=== PATIENT | female | born 1955 | race Caucasian/White ===

== ENCOUNTER 2019-11-01 13:26 | Inpatient (IN) | payer MEDICARE, OTHER ==
[~2019-11-01] VITALS: Ht 157.5 cm; Wt 94.8 kg
[2019-11-01 14:11] LABS: BASOPHILS # (AUTO) 0.1 K/uL (0.0-8.0); BASOPHILS % (AUTO) 1.1 % (0.0-2.0); EOSINOPHILS # (AUTO) 0.2 K/uL (0.0-0.7); EOSINOPHILS % (AUTO) 2.4 % (0.0-7.0); HEMATOCRIT 40.3 % (31.2-41.9); HEMOGLOBIN 13.6 g/dL (10.9-14.3); LYMPHOCYTES # (AUTO) 1.8 K/uL (20.0-40.0); LYMPHOCYTES % (AUTO) 24.3 % (20.5-51.5); MEAN CORPUSCULAR HEMOGLOBIN 32.1 uug (24.7-32.8); MEAN CORPUSCULAR HGB CONC 34 g/dL (32.3-35.6); MEAN CORPUSCULAR VOLUME 95.5 fL (75.5-95.3); MONOCYTES # (AUTO) 0.7 K/uL (2.0-10.0); NEUTROPHILS # (AUTO) 4.8 K/uL (1.8-8.9); NEUTROPHILS % (AUTO) 63.2 % (38.5-71.5); PLATELET COUNT (AUTO) 326 K/uL (179-408); RED BLOOD CELL COUNT(AUTO) 4.22 MIL/uL (3.63-4.92); WHITE BLOOD COUNT (AUTO) 7.5 K/uL (3.8-11.8)
[2019-11-01 14:18] LABS: CARBON DIOXIDE 27 mmol/L (21-32); CHLORIDE 102 mmol/L (98-107); CREATININE 0.8 mg/dL (0.6-1.3); GLUCOSE 100 mg/dL (74-106); POTASSIUM 4.3 mmol/L (3.5-5.1); UREA NITROGEN, BLOOD 13 mg/dL (7-18)
[2019-11-01 14:26] LABS: ALANINE AMINOTRANSFERASE 38 U/L (14-59); ALKALINE PHOSPHATASE 79 U/L (50-136); ASPARTATE AMINOTRANSFERASE 36 U/L (15-37); BILIRUBIN,DIRECT 0.1 mg/dL (0.0-0.2); BILIRUBIN,TOTAL 0.3 mg/dL (0.2-1.0)
[2019-11-01 14:27] LABS: ETHANOL < 3 MG/DL (0-0)
[2019-11-01 14:40] LABS: *BILIRUBIN,URIN NEGATIVE (NEGATIVE); *BLOOD, URINE NEGATIVE (NEGATIVE); *CLARITY,URINE CLEAR (CLEAR); *COLOR,URINE YELLOW (YELLOW); *KETONES,URINE NEGATIVE (NEGATIVE); *UROBILINOGEN,URINE 0.2 E.U./dl (NORMAL); LEUKOCYTE ESTERASE ,URINE NEGATIVE (NEGATIVE); NITRITE, URINE NEGATIVE (NEGATIVE); UGLUCOSE NEGATIVE (NEGATIVE)
[2019-11-01 14:48] LABS: ACETAMINOPHEN < 2.0 ug/mL (10-30)
--- NOTE | 2019-11-01 14:49 | NUR ---
pt tx to [facility] via [facility] ERT/HOSPITAL MEDICINE DIRECTOR. No acute distress noted.
[2019-11-01 14:55] LABS: *AMPHETAMINE, URINE POSITIVE (NEGATIVE); *BARBITURATE, URINE NEGATIVE (NEGATIVE); *CANNABINOID, URINE NEGATIVE (NEGATIVE); *COCCAINE, URINE NEGATIVE (NEGATIVE); *OPIATE, URINE NEGATIVE (NEGATIVE); *PHENCYCLIDINE SCREEN,URINE NEGATIVE (NEGATIVE)
[2019-11-01 15:30] VITALS: BP 157/89
[2019-11-01] MEDS ORDERED: MAGNESIUM HYDROXIDE 30 ML LIQUID UDC PO PRN (15:30)
[2019-11-01] MEDS ORDERED: TEMAZEPAM 7.5 MG CAPSULE PO PRN (15:30)
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
[2019-11-01 19:57] VITALS: BP 128/60
[2019-11-01] MEDS: SIMVASTATIN 20 MG TABLET PO SCH (20:46)
--- NOTE | 2019-11-02 00:39 | NUR ---
RECEIVED PATIENT SLEEPING INTERMITTENTLY THROUGH THE NIGHT.SHE WOKE UP TO REQUEST FOR SOME SNACKS AND WENT BACK TO BED.DENIES AH/VH. HOWEVER REFUSED TO ANSWER IF SHE HAS SUICIDAL IDEATION.COMPLIANT WITH MEDICATIONS BUT APPEARS IRRITABLE.VISUAL CHECKS MADE ON HER FOR SAFETY.WILL CONTINUE TO MONITOR.
[2019-11-02] MEDS: ACETAMINOPHEN 325 MG TABLET PO PRN ×2 (02:28→08:59)
--- NOTE | 2019-11-02 06:48 | NUR ---
SLEPT FOR APPROX 06;15 HRS.
[2019-11-02 07:30] VITALS: BP 172/95
[2019-11-02 07:55] LABS: BILIRUBIN,TOTAL 0.4 mg/dL (0.2-1.0); CREATININE 0.9 mg/dL (0.6-1.3); POTASSIUM 4.4 mmol/L (3.5-5.1); TOTAL PROTEIN, SERUM 7.9 g/dL (6.4-8.2)
[2019-11-02] MEDS: LORAZEPAM 1 MG TABLET PO PRN ×3 (07:59→16:44)
[2019-11-02] MEDS: LISINOPRIL 20 MG TABLET PO SCH (08:02)
[2019-11-02] MEDS ORDERED: GEMFIBROZIL 600 MG TABLET PO SCH (09:00)
[2019-11-02] MEDS ORDERED: ALBUTEROL SULFATE 2.5 MG/ 0.5 ML NEBU NEB PRN (09:30)
[2019-11-02] MEDS ORDERED: ALBUTEROL SULFATE 2.5 MG/3 ML NEBU NEB PRN (09:45)
--- NOTE | 2019-11-02 11:02 | NUR ---
Social Work Note/Initial Discharge Note: Patient resided at [facility] [address] [place] [address]; ([phone]). Per admin coordinator Anai ([phone]) stated that patient was discharged a month ago and is not welcomed back. Patient is currently homeless. SW will work with the patient and the MD regarding appropriate discharge planning. brewery cellar worker will form a safe and proper discharge plan.
--- NOTE | 2019-11-02 11:03 | NUR ---
Social Work Note/Coordination of Care: ditch worker contacted patients SNF "[facility]" and spoke to admin coordinator Anai ([phone]) who stated that patient was discharged a month ago "AMA". Per Anai, she stated that patient was disrespected towards the staff and wanted to leave. Per Anai, she stated that patients family is not involved in her care. This clinical writer asked if patient is welcomed back for re-admissions, she stated no.
--- NOTE | 2019-11-02 11:05 | NUR ---
Social Work Note/Family Contact: painting worker contacted patients daughter Doris ([phone]) and did not have a voicemail set up. This telegraphic typewriter installer was unable to reach and will attempt again.
--- NOTE | 2019-11-02 12:22 | NUR ---
Social Work Note/Individual Therapy: tea tree farm worker met with patient for brief counseling and assessed for level of suicidality. tea tree farm worker assessed for suicidal thoughts, patient denied suicidal thoughts. Patient expressed that she is not SI and that she has never been SI. tea tree farm worker provided comfort and actively listened. tea tree farm worker will continue to follow up.
[2019-11-02] MEDS ORDERED: NICOTINE 14 MG/24HR PATCH TD SCH (14:00)
[2019-11-02] MEDS: NICOTINE 7 MG/24HR PATCH TD SCH (14:15)
[2019-11-02] MEDS ORDERED: NICOTINE 7 MG/24HR PATCH TD ONE (14:15)
[2019-11-02 16:00] VITALS: BP 151/74
[2019-11-02 20:00] VITALS: BP 151/93
[2019-11-02] MEDS: CARBAMAZEPINE 200 MG TABLET PO SCH (20:23)
[2019-11-02] MEDS: ARIPIPRAZOLE 5 MG TABLET PO SCH (20:23)
[2019-11-02] MEDS: SIMVASTATIN 20 MG TABLET PO SCH (20:23)
[2019-11-02] MEDS: TRAZODONE 100 MG TABLET PO SCH (20:23)
[2019-11-03] MEDS: TEMAZEPAM 15 MG CAPSULE PO PRN (00:54)
[2019-11-03] MEDS: ACETAMINOPHEN 325 MG TABLET PO PRN (06:26)
[2019-11-03 07:30] VITALS: BP 135/81
[2019-11-03] MEDS: CARBAMAZEPINE 200 MG TABLET PO SCH ×3 (08:11→17:17)
[2019-11-03] MEDS: LISINOPRIL 20 MG TABLET PO SCH (08:11)
[2019-11-03] MEDS: NICOTINE 7 MG/24HR PATCH TD SCH (08:12)
--- NOTE | 2019-11-03 10:12 | NUR ---
Social Work Note/Coordination of Care: craft worker contacted Anai from [facility] ([phone]) and faxed [facility] psychiatric notes and progress notes.
--- NOTE | 2019-11-03 10:16 | NUR ---
-Social Work Note/Family Contact: s iron worker contacted patients daughter Doris ([phone]) and was unable to reach her. Patients ruel George does not have a voicemail set up.
--- NOTE | 2019-11-03 11:24 | NUR ---
Social Work Note: This bid writer met with patient and helped her navigate phone numbers from her cellphone of her family members. Daughter Siomara ([phone]) and son Joseph ([phone]). Afterwards, this bid writer handed patients cellphone to Jelena .
--- NOTE | 2019-11-03 11:26 | NUR ---
Social Work Note/Family Contact: family services worker tried to contact patients daughter Siomara ([phone]) and it was the wrong phone number. This telegraphic typewriter repairer attempted to contact patients son Joseph ([phone]) and it was the wrong phone number.
--- NOTE | 2019-11-03 11:34 | NUR ---
Social Work Note/Substance Abuse Intervention: Patient was provided with a brief substance abuse intervention and referred to [facility] , [facility] , and [facility] .
--- NOTE | 2019-11-03 12:28 | NUR ---
Social Work Note/Coordination of Care: emergency service worker contacted Anai [facility]helle [facility] ([phone]) and stated that patient is accepted.
[2019-11-03] MEDS: HYDROCODONE/APAP 10-325 MG TABLET PO PRN ×2 (14:49→22:19)
[2019-11-03 16:00] VITALS: BP 124/74
[2019-11-03] MEDS: ARIPIPRAZOLE 5 MG TABLET PO SCH (20:05)
[2019-11-03] MEDS: TRAZODONE 100 MG TABLET PO SCH (20:05)
[2019-11-03] MEDS: SIMVASTATIN 20 MG TABLET PO SCH (20:05)
[2019-11-03] MEDS: MAG HYDROX/AL HYDROX/SIMETH 30 ML LIQUID UDC PO PRN (20:05)
[2019-11-03 20:45] VITALS: BP 136/76
[2019-11-03] MEDS: LORAZEPAM 1 MG TABLET PO PRN (21:09)
[2019-11-04 07:30] VITALS: BP 136/89
[2019-11-04] MEDS: LISINOPRIL 20 MG TABLET PO SCH (08:31)
[2019-11-04] MEDS: CARBAMAZEPINE 200 MG TABLET PO SCH ×3 (08:31→17:16)
[2019-11-04] MEDS: HYDROCODONE/APAP 10-325 MG TABLET PO PRN ×2 (08:34→18:49)
[2019-11-04] MEDS: NICOTINE 7 MG/24HR PATCH TD SCH (08:37)
--- NOTE | 2019-11-04 11:21 | NUR ---
Social Work Note/PC Hearing Notification: migratory worker was unable to notify any family members that it will be patients probable cause of hearing today. Patient does not have any family members.
--- NOTE | 2019-11-04 13:00 | NUR ---
Gps/Application Security Consultant- Stayed in the activity room during lunch. Ambulates around with her FWW.Adequate relief from her lower back pain, making needs known .Had beed cooperative with staff providing her care.
[2019-11-04 16:00] VITALS: BP 145/72
[2019-11-04 19:44] VITALS: BP 103/52
[2019-11-04] MEDS: TRAZODONE 100 MG TABLET PO SCH (20:26)
[2019-11-04] MEDS: ARIPIPRAZOLE 5 MG TABLET PO SCH (20:26)
[2019-11-04] MEDS: SIMVASTATIN 20 MG TABLET PO SCH (20:26)
[2019-11-05] MEDS: HYDROCODONE/APAP 10-325 MG TABLET PO PRN ×2 (07:29→20:10)
[2019-11-05 07:30] VITALS: BP 122/63
[2019-11-05] MEDS: CARBAMAZEPINE 200 MG TABLET PO SCH ×4 (09:08→17:00)
[2019-11-05] MEDS: NICOTINE 7 MG/24HR PATCH TD SCH (09:09)
[2019-11-05] MEDS: LISINOPRIL 20 MG TABLET PO SCH (09:09)
[2019-11-05] MEDS: LORAZEPAM 1 MG TABLET PO PRN ×2 (10:27→15:19)
[2019-11-05 16:00] VITALS: BP 149/77
[2019-11-05 19:59] VITALS: BP 130/75
[2019-11-05] MEDS: ARIPIPRAZOLE 5 MG TABLET PO SCH (20:32)
[2019-11-05] MEDS: TRAZODONE 100 MG TABLET PO SCH (20:32)
[2019-11-05] MEDS: SIMVASTATIN 20 MG TABLET PO SCH (20:32)
--- NOTE | 2019-11-05 23:50 | NUR ---
RECEIVED PATIENT IN BED AND AFTER A WHILE SHE REQUESTED FOR A PAIN PILL.AFTER ASSESSMENT SHE WAS GIVEN HER TAB NORCO 10-325MG AT 20;20.SHE HOWEVER CAME OUT AFTER A WHILE AND BEGAN SHOUTING PROFANITIES AT STAFF.ACCUSING THEM OF TREATING HER DIFFERENTLY BECAUSE SHE IS HOMELESS.'F* YOU,MY SHIT IS GOOD YOURS'.SHE WAS IRRITABLE, ANXIOUS HAS POOR IMPULSE CONTROL.SHE USES A FWW FOR AMBULATION BUT THREW IT OUT IN A FIT OF ANGER. VISUAL CHECKS MADE ON HER FOR SAFETY.
[2019-11-06] MEDS: LORAZEPAM 1 MG TABLET PO PRN ×2 (01:29→07:37)
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
[2019-11-06] MEDS: HYDROCODONE/APAP 10-325 MG TABLET PO PRN (07:37)
--- NOTE | 2019-11-06 07:42 | NUR ---
GPS: Nursing Notes: Chemical Restraint: Patient continue to be overly disruptive by constantly screaming, yelling, shouting profanities, toward staff and peers, threatening staff, spitting staff, shouting racial statements, poor anger management, Dr. Wiley called and ordered: Zyprexa 10mg IM STAT for severe agitation, R=18, medication IM given at this time, continue to monitor for safety, continue with treatment plan.
[2019-11-06] MEDS ORDERED: OLANZAPINE 10 MG VIAL IM ONE (07:45)
--- NOTE | 2019-11-06 08:12 | NUR ---
GPS: Nursing Notes: Reassessment of Chemical Restraint: Patient is calmed, not shouting. Patient is resting and sleeping on her bed, medication IM STAT was effective, R=18, continue to monitor for safety, continue with treatment plan.
[2019-11-06] MEDS: LISINOPRIL 20 MG TABLET PO SCH ×2 (08:31→12:23)
[2019-11-06] MEDS: AMOXICILLIN-CLAVUL 875-125MG TABLET PO SCH ×3 (08:31→20:26)
[2019-11-06] MEDS: NICOTINE 7 MG/24HR PATCH TD SCH (08:31)
[2019-11-06] MEDS: CARBAMAZEPINE 200 MG TABLET PO SCH ×3 (08:31→16:23)
[2019-11-06 12:00] VITALS: BP 142/83
[2019-11-06 16:07] VITALS: BP 133/73
[2019-11-06] MEDS: TRAZODONE 100 MG TABLET PO SCH (20:26)
[2019-11-06] MEDS: SIMVASTATIN 20 MG TABLET PO SCH (20:26)
[2019-11-06] MEDS: ARIPIPRAZOLE 5 MG TABLET PO SCH (20:26)
[2019-11-06] MEDS: TEMAZEPAM 15 MG CAPSULE PO PRN (21:14)
--- NOTE | 2019-11-07 01:32 | NUR ---
RECEIVED PATIENT IN BED AND AFTER A WHILE SHE CAME OUT COULD BE HEARD WITH OCCASIONAL PROFANITIES THROWN AT STAFF.SHE HAS POOR IMPULSE CONTROL. MOOD IS LABILE BUT DENIES SI/HI. HOWEVER COMPLIANT WITH HER MEDICATIONS. CHECKS MADE ON HER FOR SAFETY.
[2019-11-07] MEDS ORDERED: OLANZAPINE 10 MG VIAL IM ONE (03:15)
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
--- NOTE | 2019-11-07 06:24 | NUR ---
SLEPT ON AND OFF FOR 4;15HRS.UP AND ABOUT AND IN ACTIVITY ROOM.
[2019-11-07 07:30] VITALS: BP 103/68
[2019-11-07] MEDS: LISINOPRIL 20 MG TABLET PO SCH (08:42)
[2019-11-07] MEDS: AMOXICILLIN-CLAVUL 875-125MG TABLET PO SCH ×3 (08:42→21:00)
[2019-11-07] MEDS: CARBAMAZEPINE 200 MG TABLET PO SCH ×3 (08:42→16:16)
[2019-11-07] MEDS: NICOTINE 7 MG/24HR PATCH TD SCH (08:42)
[2019-11-07] MEDS: HYDROCODONE/APAP 5-325MG TABLET PO PRN ×2 (08:42→18:37)
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
[2019-11-07] MEDS: LORAZEPAM 1 MG TABLET PO PRN (10:07)
[2019-11-07 20:00] VITALS: BP 145/70
[2019-11-07] MEDS: ARIPIPRAZOLE 5 MG TABLET PO SCH (20:36)
[2019-11-07] MEDS: TRAZODONE 100 MG TABLET PO SCH (20:36)
[2019-11-07] MEDS: SIMVASTATIN 20 MG TABLET PO SCH (20:36)
[2019-11-07] MEDS: TEMAZEPAM 15 MG CAPSULE PO PRN (22:07)
[2019-11-07] MEDS ORDERED: LORAZEPAM 2 MG/1 ML VIAL IV STA (23:26)
[2019-11-07] MEDS ORDERED: diphenhydrAMINE 50 MG/1 ML VIAL IM STA (23:26)
[2019-11-07] MEDS ORDERED: HALOPERIDOL LACTATE 5 MG/1 ML VIAL IM STA (23:26)
--- NOTE | 2019-11-08 05:30 | NUR ---
Pt became aggressive toward staff unprovoked, began yelling and screaming, threatening staff she was "going to kick your asses!" Pt yelled homophobic and racist epithets, and refused staff attempts at redirection. Pt refused PO medications, accusing staff of stealing her personal items and withholding her medication. However, Pt refused PO meds twice when offered, and was re-educated regarding contraband and proper storage. Pt attempted to spit at this film writer multiple times. Pt grabbed her roommate's walker and postured toward staff with it. Security was called and Dr Ramachandran notified of Pt behavior. Haldol 5mg, Benadryl 25mg, and Ativan 2mg administered with moderate effect. Pt slept intermittently the rest of the shift. Pt refused VS x3. Pt appears to be sleeping at this time, breathing even and unlabored. No injuries to Pt or staff incurred.
[2019-11-08 07:43] VITALS: BP 139/77
[2019-11-08] MEDS: CARBAMAZEPINE 200 MG TABLET PO SCH ×3 (08:45→17:00)
[2019-11-08] MEDS: AMOXICILLIN-CLAVUL 875-125MG TABLET PO SCH ×3 (08:45→22:01)
[2019-11-08] MEDS: NICOTINE 7 MG/24HR PATCH TD SCH (08:45)
[2019-11-08] MEDS: LISINOPRIL 20 MG TABLET PO SCH (08:45)
[2019-11-08] MEDS: LORAZEPAM 1 MG TABLET PO PRN (11:22)
[2019-11-08] MEDS: HYDROCODONE/APAP 5-325MG TABLET PO PRN (12:18)
[2019-11-08 15:46] VITALS: BP 110/49
--- NOTE | 2019-11-08 15:48 | NUR ---
Social Work Note/Individual Therapy: tank worker met with patient for brief counseling and assessed for level of suicidality. Patient denies SI. tank worker provided comfort and actively listened. tank worker provided [facility] Crisis Line ( ), [place] Suicide Prevention Lifeline ( ), [facility] Substance Abuse Helpline ( ). tank worker will continue to follow up.
[2019-11-08 20:33] VITALS: BP 112/69
[2019-11-08] MEDS: SIMVASTATIN 20 MG TABLET PO SCH ×2 (21:00→22:00)
[2019-11-08] MEDS: ARIPIPRAZOLE 10 MG TABLET PO SCH ×2 (21:00→21:59)
[2019-11-08] MEDS: TRAZODONE 50 MG TABLET PO SCH ×2 (21:00→21:59)
--- NOTE | 2019-11-08 22:00 | NUR ---
Unable to administer QHS medications, patient was sleeping and unable to take her medications. will continue to monitor.
--- NOTE | 2019-11-09 06:46 | NUR ---
patient slept for approx. 8.30 hrs through the night. she was noted calm and pleasant during the shift; however, she is constantly asking for food and drinks; she required multiple redirections. Shower was provided. will continue to monitor.
[2019-11-09] MEDS: HYDROCODONE/APAP 5-325MG TABLET PO PRN (07:08)
[2019-11-09 07:30] VITALS: BP 108/72
[2019-11-09] MEDS: CARBAMAZEPINE 200 MG TABLET PO SCH ×3 (08:48→17:31)
[2019-11-09] MEDS: NICOTINE 7 MG/24HR PATCH TD SCH (08:49)
[2019-11-09] MEDS: AMOXICILLIN-CLAVUL 875-125MG TABLET PO SCH ×2 (08:49→20:13)
[2019-11-09] MEDS: LISINOPRIL 20 MG TABLET PO SCH (08:49)
[2019-11-09] MEDS: LORAZEPAM 1 MG TABLET PO PRN ×2 (10:27→17:34)
--- NOTE | 2019-11-09 13:40 | NUR ---
Social Work Note/Individual Therapy: reworker met with patient for brief counseling. reworker assessed for patients level of suicidality. Patient denies SI. This advertising copywriter provided mental health referrals to patient such as [facility] Crisis Line ( ), [place] Suicide Prevention Lifeline ( ) , [facility] Substance Abuse Helpline ( ). reworker encouraged patient to contact either family, hotline, or a professional if patient were to have suicidal thoughts. This advertising copywriter also encouraged patient to alert either this advertising copywriter or the nursing staff. Patient stated that her support is her friend Marc and her daughters who she contacts.
[2019-11-09] MEDS: MAG HYDROX/AL HYDROX/SIMETH 30 ML LIQUID UDC PO PRN (13:52)
[2019-11-09 16:00] VITALS: BP 130/87
[2019-11-09] MEDS: ARIPIPRAZOLE 10 MG TABLET PO SCH (20:14)
[2019-11-09] MEDS: TRAZODONE 50 MG TABLET PO SCH (20:14)
[2019-11-09 20:15] VITALS: BP 160/81
[2019-11-09] MEDS: SIMVASTATIN 20 MG TABLET PO SCH (20:16)
--- NOTE | 2019-11-09 20:36 | NUR ---
patient b/p at 1999 was 160/81 and pulse 78bpm. after given all her QHS medications patient i B/P now is 116/66 nd pulse 72bpm. patient in no distress in bed asleep. will continue to monitor.
[2019-11-09 20:55] VITALS: BP 116/66
[2019-11-09] MEDS: TEMAZEPAM 15 MG CAPSULE PO PRN (21:57)
[2019-11-10] MEDS: HYDROCODONE/APAP 5-325MG TABLET PO PRN ×2 (03:39→14:04)
[2019-11-10 07:30] VITALS: BP 111/67
[2019-11-10] MEDS: AMOXICILLIN-CLAVUL 875-125MG TABLET PO SCH ×2 (08:08→20:22)
[2019-11-10] MEDS: CARBAMAZEPINE 200 MG TABLET PO SCH ×3 (08:08→17:37)
[2019-11-10] MEDS: LISINOPRIL 20 MG TABLET PO SCH (08:17)
[2019-11-10] MEDS: NICOTINE 7 MG/24HR PATCH TD SCH (08:17)
[2019-11-10] MEDS: MAG HYDROX/AL HYDROX/SIMETH 30 ML LIQUID UDC PO PRN (09:31)
[2019-11-10] MEDS: LORAZEPAM 1 MG TABLET PO PRN (09:32)
--- NOTE | 2019-11-10 11:25 | NUR ---
Received patient this am in the hallway. Multiple requests for medications, food, toiletries. Patient is anxious and irritable. Pacing back and forth . Fixated on being discharged tomorrow. Reassurance given, and medicated for anxiety. Patient calmer at this time. Continuing to monitor for behavior escalation and safety.
--- NOTE | 2019-11-10 14:06 | NUR ---
Social Work Note/Firearms Report: Engraver Wood completed and submitted a [facility] firearms report for 5250 grave disability certification. A copy of report has been placed in patient chart.
--- NOTE | 2019-11-10 14:26 | NUR ---
Social Work Note/Family Contact: Patient does not have any family members to contact.
[2019-11-10 16:00] VITALS: BP 122/76
--- NOTE | 2019-11-10 20:00 | NUR ---
RECEIVED PATIENT IN THE HALLWAY. SHE IS NOTED A/O X 3. SHE IS ABLE TO AMBULATE WITH STEADY GAIT AND ABLE TO MAKE HER NEEDS KNOWN. SHE IS NOTED CALM AND COOPERATIVE UPON APPROACHED. SHE IS NOTED LESS DEMANDING LESS INTRUSIVE. SHE DENIES SI/HI/VH/AH. SHE IS ABLE TO CFS. PATIENT IS REDIRECTABLE. V/S STABLE. PT IS REASSURED FOR HER SAFETY. SAFETY AND FALL PRECAUTION IN [place]. WILL CONTINUE TO MONITOR.
[2019-11-10] MEDS: ARIPIPRAZOLE 10 MG TABLET PO SCH (20:22)
[2019-11-10] MEDS: SIMVASTATIN 20 MG TABLET PO SCH (20:22)
[2019-11-10] MEDS: TRAZODONE 50 MG TABLET PO SCH (20:22)
[2019-11-10 20:44] VITALS: BP 114/61
[2019-11-10] MEDS: TEMAZEPAM 15 MG CAPSULE PO PRN (21:50)
[2019-11-11] MEDS: LORAZEPAM 1 MG TABLET PO PRN ×2 (03:30→13:57)
--- NOTE | 2019-11-11 06:58 | NUR ---
patient slept for approx. 5 hrs through the night. she continue with multiple requests (food, coffee, crackers, milk etc.). however, he is noted less irritable. pt able to be redirected. will continue to monitor.
[2019-11-11 07:30] VITALS: BP 114/73
--- NOTE | 2019-11-11 08:03 | NUR ---
Social Work Note/Discharge: Patient will be discharged to longterm facility to [facility] [id number] [place] [address]; ([phone]) via Ambulance transportation at 11:00pm. Poultry Scientist spoke with Anai rivers, at [facility] ([phone]) who stated patient will be accepted at facility today. Patient is alert and oriented x2-3, and is not able to plan for self-care at this time, but is willing to accept care provided for her at the facility. Patient denies any suicidal or homicidal ideations. Patient is aware and agreeable with discharge plans. Patient does not have any family members. Patient will continue to follow-up with her (psychiatrist) Dr. Ramachandran and (agronomy manager) Dr. Fermin and will discuss smoking cessation and address substance abuse dependency. Patient signed the homeless patient waiver form. Patient was provided with additional resources such as the homeless fci packet, which includes a list of emergency shelters, housing resources, drop in centers, and showers/hot meals centers. This also included the Homeless Information Hotline (052)-012-5369 or 211, [employer] for [employer] , and the [facility] (109)-237-4856. Patient was provided with outpatient mental health resources to [facility] Crisis Line , and the National Suicide Prevention Lifeline . Patient was provided with a brief substance abuse intervention and referred to [facility] , [facility] , and [facility] . Patient presents with euthymic mood and congruent affect.
[2019-11-11] MEDS: NICOTINE 7 MG/24HR PATCH TD SCH (08:30)
[2019-11-11] MEDS: AMOXICILLIN-CLAVUL 875-125MG TABLET PO SCH (08:30)
[2019-11-11] MEDS: CARBAMAZEPINE 200 MG TABLET PO SCH ×3 (08:30→17:34)
[2019-11-11 08:37] VITALS: BP 114/73
[2019-11-11] MEDS: LISINOPRIL 20 MG TABLET PO SCH (08:37)
[2019-11-11] MEDS: HYDROCODONE/APAP 5-325MG TABLET PO PRN (09:54)
--- NOTE | 2019-11-11 13:00 | NUR ---
Called report to [facility] spoke with LLOYD Fry, discharge report given and staff verbalized understanding.
--- NOTE | 2019-11-11 18:51 | NUR ---
1800 Patient discharged to [facility] by ambulance. Patioent v/s stable, denies SI/HI.
== END 2019-11-11 18:00 | DRG 885 ==
LOC: ER 13:26 → GPS 14:44
PROVIDERS: ADMIT Psychiatry & Neurology Psychiatry; ATTEND Student in an Organized Health Care Education/Training Program
DX: F31.5 Bipolar disorder, current episode depressed, severe, with psychotic features (principal); E44.1 Mild protein-calorie malnutrition; D68.59 Other primary thrombophilia; Z68.38 Body mass index [BMI] 38.0-38.9, adult; Z59.0 Homelessness; F17.210 Nicotine dependence, cigarettes, uncomplicated; E78.5 Hyperlipidemia, unspecified; Z74.09 Other reduced mobility; E78.1 Pure hyperglyceridemia; E66.9 Obesity, unspecified; E11.9 Type 2 diabetes mellitus without complications; I10 Essential (primary) hypertension; M54.30 Sciatica, unspecified side; Z91.14 Patient's other noncompliance with medication regimen; Z91.5 Personal history of self-harm; F03.90 Unspecified dementia, unspecified severity, without behavioral disturbance, psychotic disturbance, mood disturbance, and anxiety
CPT/HCPCS: 36415; 71045; 80307; 85025; 93005; A4663; A9150; G0480; G0480-TC; J1200; J1630; J2060; J2358

== ENCOUNTER 2020-06-28 19:11 | Emergency (ER) | payer MEDICAID, MEDICARE, OTHER ==
[~2020-06-28 19:11] MED LIST: LISI-603 PO; SIMV-46 PO
== END 2020-06-28 19:15 | disposition left against medical advice (07) ==
LOC: ER 19:11
DX: Z75.3 Unavailability and inaccessibility of health-care facilities (principal)